=== PATIENT | male | born 1965 | race Caucasian/White ===

== ENCOUNTER 2019-07-24 10:22 | Emergency (ER) | payer OTHER ==
[~2019-07-24] VITALS: Ht 188 cm; Wt 81.4 kg
[~2019-07-24 10:22] MED LIST: IBUPROFEN600 MG PO; INDOMETHACIN50 MG PO; METHOCARBAMOL750 MG PO; NAPROSYN500 MG PO; NORCO 10-325 T1 EACH PO; TYLENOL325 MG PO
== END 2019-07-24 15:17 | disposition home or self-care (01) ==
LOC: ED 10:22
PROC: BT40ZZZ Ultrasonography of Bladder (ICD-10-PCS; principal; 2019-07-24)
DX: R10.32 Left lower quadrant pain (principal); F17.200 Nicotine dependence, unspecified, uncomplicated
CPT/HCPCS: 51798; 76857; 81001; 99284-25; A9270